=== PATIENT | male | born 1950 | race Caucasian/White ===

== ENCOUNTER → 2016-09-30 | Outpatient (CLI) | payer MEDICARE ==
[2016-06-17 11:15] VITALS: BP 128/80
[~2016-09-30] MED LIST: ACET500T68 PO; ALLERGY SHOT; AMLO2.5T PO; ASPI-482 PO; ATOR10TA PO; AZEL23SP NS; AZEL6DRO2 EACHEYE; BLUE EMU TOP; CARV25TA2 PO; CARV3.122 PO; CELE100C PO; CEVI30CA PO; CITA40TA5 PO; CLON0.5T3 PO; CYAN100072 PO; DICL100G7 TP; DIPH25TA PO; ERGO400T2 PO; GABA-585 PO; METH10SO3 PO; MORP15TA PO; MULT-658 PO; NITR0.4T SL; OMEG300C PO; PANT20TA3 PO; POTA20TA4 PO; POTA99TA10 PO; QUET25TA PO; TAMS0.4C2 PO; TELM20TA4 PO; TRAM50TA PO; ZOLP10TA4 PO
--- NOTE | 2016-09-30 13:08 | RAD ---
Indication pain. AP oblique and lateral views of the left knee were obtained as well as a sunrise view. There is suspect mild bony demineralization. An acute finding is not seen. Significant degenerative changes are not apparent on plain films. IMPRESSION: No acute or significant finding seen on plain films
== END | disposition home or self-care (01) ==
LOC: RAD 11:55
PROVIDERS: ATTEND Anesthesiology
DX: M17.12 Unilateral primary osteoarthritis, left knee (principal)
CPT/HCPCS: 73564; G0463

== ENCOUNTER → 2016-10-28 | Outpatient (CLI) | payer MEDICARE ==
[2016-06-17 11:15] VITALS: BP 128/80
--- NOTE | 2016-10-28 11:46 | KCIC ---
PROCEDURE MR of the left knee HISTORY Medial left knee pain. Swelling for 5 weeks ago. TECHNIQUE Routine multiplanar sequences are obtained. COMPARISON None FINDINGS Tear of the medial meniscus. No evidence of a lateral meniscal tear. Anterior and posterior cruciate ligaments are intact. Medial collateral ligament is intact Iliotibial band unremarkable. Fibular collateral ligament, biceps femoris tendon and popliteus tendon are intact. The extensor mechanism is intact. Small joint effusion. No evidence of an osteochondral loose body. Mild to moderate medial joint compartment chondromalacia. Tiny subchondral cysts at the medial femoral condyle. Mild chondromalacia at the posterior lateral tibial plateau. Severe chondromalacia at the patella. Mild subchondral marrow edema at the medial tibial plateau. There is a tiny nondisplaced subchondral fracture. Small bone lesion within the distal femur, abutting the growth plate scar, measuring 12 millimeters long axis, most compatible with a benign enchondroma. No aggressive bone destruction. IMPRESSION 1. Medial meniscal tear. 2. Small nondisplaced subchondral fracture at the medial tibial plateau. This most likely represents a stress fracture due to repetitive micro trauma, depending on clinical correlation. 3. Primary osteoarthritis. Electronically signed by: Dave Preston MD (Oct 28, 2016 11:44:39)
== END | disposition home or self-care (01) ==
LOC: KCIC MRI 07:54
PROVIDERS: ATTEND Orthopaedic Surgery
DX: M17.12 Unilateral primary osteoarthritis, left knee (principal); S83.242A Other tear of medial meniscus, current injury, left knee, initial encounter; X58.XXXA Exposure to other specified factors, initial encounter; Y93.89 Activity, other specified; Y92.89 Other specified places as the place of occurrence of the external cause; Y99.8 Other external cause status
CPT/HCPCS: 73721

== ENCOUNTER 2017-01-27 06:11 | Day surgery (SDC) | payer MEDICARE ==
[~2017-01-27 06:11] MED LIST changes: +DICL100G18 TP; -DICL100G7 TP
[2017-01-27] MEDS ORDERED: fentaNYL PF VIAL 100 MCG/2 ML VIAL IV PRN ×2 (07:00)
[2017-01-27] MEDS ORDERED: LIDOCAINE 1% 1 ML SYRINGE. ID PRN (07:00)
[2017-01-27] MEDS ORDERED: ONDANSETRON PF 4 MG/2 ML VIAL. IV PRN (07:00)
[2017-01-27] MEDS ORDERED: HYDROmorphone 2 MG/ML VIAL IV PRN (07:00)
[2017-01-27] MEDS ORDERED: PROCHLORPERAZINE 10 MG/2 ML VIAL. IV PRN (07:00)
[2017-01-27] MEDS ORDERED: IV RINGERS,LACTATED 1000ML 1,000 ML IV SCH ×2 (07:00→07:30)
[2017-01-27] MEDS ORDERED: MORPHINE SULFATE 2 MG/ML DISP.SYRIN. IV PRN (07:00)
[2017-01-27] MEDS ORDERED: BUPIVACAINE MPF 0.5% 30 ML VIAL. ONE (07:06)
--- NOTE | 2017-01-27 07:09 | EKG ---
[address] [place] [address] Test Date: 2017-01-27 Test Time: 07:09:48 Pat Name: LOUISE HORNER Department: Room: Gender: M Evaluator: ZACKERY : 1950 Requested By: MARY BORGES Order Number: [id number] Reading MD: Measurements Intervals [place] Rate: 73 P: 26 NH: 256 QRS: -44 QRSD: 132 T: 51 QT: 412 QTc: 458 Interpretive Statements SINUS RHYTHM VENTRICULAR PREMATURE COMPLEX(ES) PROLONGED NH INTERVAL ABNORMAL LEFT AXIS DEVIATION LEFT ANTERIOR FASCICULAR BLOCK RIGHT BUNDLE BRANCH BLOCK BIFASCICULAR BLOCK QRS(T) CONTOUR ABNORMALITY CONSIDER ANTEROLATERAL MYOCARDIAL DAMAGE ABNORMAL ECG RI6.01 Compared to ECG 06/09/2016 16:03:55 First degree AV block now present Left anterior fascicular block now present Bifascicular block now present
[2017-01-27] MEDS ORDERED: fentaNYL PF VIAL 100 MCG/2 ML VIAL ONE (07:11)
[2017-01-27] MEDS ORDERED: PROPOFOL 20 ML IV ONE (07:11)
[2017-01-27] MEDS ORDERED: DEXAMETHASONE SOD PHOS 20 MG/5 ML VIAL. ONE (07:11)
[2017-01-27] MEDS ORDERED: LIDOCAINE 2% PF Vial for OR 5 ML VIAL. ONE (07:11)
[2017-01-27] MEDS ORDERED: ONDANSETRON PF 4 MG/2 ML VIAL. ONE (07:11)
[2017-01-27] MEDS ORDERED: FAMOTIDINE 20 MG/2 ML VIAL ONE (07:11)
[2017-01-27] MEDS ORDERED: MIDAZOLAM HCL/PF 2 MG/2 ML VIAL. ONE (07:11)
--- NOTE | 2017-01-27 07:53 | DISCH ---
DISCHARGE INSTRUCTIONS Condition on Discharge Condition on Discharge: Stable Activity After Discharge Activity Instructions for Disc: Other, see below Other activity instructions: slow progression back to activities as tolerated Weight Bearing Status after Di: As tolerated Diet after Discharge Diet after Discharge: Regular Wound Incision Care Wound/Incision Care: Ice to area for comfort, Keep wound elevated, Change dressing Other wound/incision instructi: remove dressing in 2 days may then shower Contacting the DR. after DC Call your doctor for: Concerns you may have Follow-Up Follow up with: Tabatha 7-10 days PATRICA GEE MD Jan 27, 2017 07:53
[2017-01-27] MEDS ORDERED: OXYC-327 PO (07:55)
[2017-01-27] MEDS ORDERED: CLINDAMYCIN 600MG PREMIX 50 ML IV PRN (08:00)
[2017-01-27] MEDS ORDERED: ePHEDrine PF IN SALINE 50 MG/5 ML DISP.SYRIN IV ONE (08:01)
[2017-01-27] MEDS ORDERED: DESFLURANE 31 TO 60 MINUTES IH ONE ×2 (08:27→08:46)
[2017-01-27 09:31] VITALS: BP 159/75
--- NOTE | 2017-01-27 09:43 | PDOC ---
BRIEF OPERATIVE NOTE Date: Jan 27, 2017 Pre-Op Diagnosis Left knee medial meniscus tear Post-Op Diagnosis Same Procedure Performed Left knee arthroscopy partial medial meniscectomy Surgeon Tabatha Anesthesia Type: General Blood Loss 5 mL Findings Displaced tear posterior horn and body medial meniscus Complications None OPerative Note Operative indications patient is a 66-year-old male with sudden onset of left knee pain unresponsive to nonoperative treatment that is mechanical in nature with sharp pain with twisting pivoting activities. Clinical suspicion of a meniscal tear was verified by MRI. I had gone over with him the risks benefits postoperative course of the suggested operative procedure, including the inability to undo any degenerative changes of the symptoms associated with that possibility of infection nerve or blood vessel damage medical or other anesthetic consultations among others. All his questions were answered he wants to proceed with surgical evaluation and treatment having given the informed consent. Operative text patient was identified procedure verified patient placed in the supine position on operating table after adequate amounts of general anesthesia were administered thigh tourniquet was placed on the left lower extremity right lower extremity was placed in the lithotomy phoenix all bony prominences were well padded and the left lower shoulder was prepped and draped in standard sterile fashion. After timeout was performed patient procedure identified and verified, the left lower extremity was exsanguinated by Esmarch bandage tourniquet inflated to 250 mmHg and a lateral portal was established in standard fashion knee joint entered without difficulty medial portal established using spinal needle localization and the knee joint was systematically examined. He had some mild patellar chondromalacia which was lightly debrided to remove any loose fragments with the arthroscopic shaver some loose cartilage fragments were noted and suprapatellar pouch and gutter and evacuated with the arthroscopic shaver as well he had a flipped tear parrot- beak type involving the posterior horn and body of the medial meniscus which was trimmed back to stable tissue using arthroscopic punch and shaver. A stable rim of meniscus was achieved and he had mild chondromalacia particularly of the distal femoral condyle and in a very isolated fashion on the medial tibial plateau just under the cocopah portion of the meniscus tear. ACL was probed and found to be intact as well as the lateral meniscus. A brief to her the knee joint again revealed no loose cartilage pieces no other abnormalities the joint was drained of arthroscopic fluid portals closed with nylon suture fat pad and joint were injected with 20 mL of half percent plain Marcaine sterile dressings were applied tourniquet was deflated after total tourniquet time proximal leg 23 minutes patient was returned to recovery room in stable condition having tolerated the procedure well PATRICA GEE MD Jan 27, 2017 09:43
== END 2017-01-27 10:00 | disposition home or self-care (01) ==
LOC: SURG 06:11
PROVIDERS: ATTEND Orthopaedic Surgery
DX: S83.242A Other tear of medial meniscus, current injury, left knee, initial encounter (principal); X58.XXXA Exposure to other specified factors, initial encounter; Y93.89 Activity, other specified; Y92.89 Other specified places as the place of occurrence of the external cause; Y99.9 Unspecified external cause status; E78.00 Pure hypercholesterolemia, unspecified; I10 Essential (primary) hypertension; K21.9 Gastro-esophageal reflux disease without esophagitis; M19.90 Unspecified osteoarthritis, unspecified site; E32.9 Disease of thymus, unspecified; Z86.69 Personal history of other diseases of the nervous system and sense organs; Z82.49 Family history of ischemic heart disease and other diseases of the circulatory system; Z88.0 Allergy status to penicillin; Z88.8 Allergy status to other drugs, medicaments and biological substances
CPT/HCPCS: 29881; 93005; J1100; J2001; J2250; J2405; J2704; J3010; J3490; J7120; S0028

== ENCOUNTER → 2017-02-12 | Outpatient (CLI) | payer MEDICARE ==
[2017-01-27 09:31] VITALS: BP 159/75
[~2017-02-12] MED LIST changes: +IOHEXOL 180 MG/ML 10 ML VIAL. ONE; +OXYC-327 PO; +methylPREDNISolone ACETATE 40 MG/ML VIAL. ONE; +methylPREDNISolone ACETATE 80 MG/ML VIAL. ONE
--- NOTE | 2017-02-12 22:44 | PAIN ---
DATE OF SERVICE: 02/12/2017 PROGRESS NOTE FOR PAIN CLINIC DIAGNOSES: Lumbar radiculopathy with lumbar degenerative disk disease and post-lumbar laminectomy syndrome. HISTORY OF PRESENT ILLNESS: The patient is a 66-year-old male who returns for followup, last seen on 09/30/2016. The patient did well after transforaminal injection ____, had lumbar surgery in 06/2016. Has recently had the left knee surgery with meniscectomy about 2 weeks ago. The patient reports the pain; however, is in his right leg and low back radiating to the right knee and ankle as it was previously, again significantly helped with his transforaminal injection and significantly helped with the surgery temporarily. The patient reports now it has been about 7 months since surgery and the pain is beginning to return more on the right side, some in the low back, but mostly in the leg itself, in the knee and ankle without any new motor or sensory deficits. The patient reports full functional lower extremity. Reports his pain; however, as a 10 on a scale of 10 at its worst, it is currently a 6 on a scale of 10 today, and 8 on average. The patient reports it is burning, aching, cramping, tingling, constant, and shooting in the right leg as it was previously, and becoming more noticeable with activity. The patient reports better with sitting or lying down, does not awaken him from sleep at night. He sleeps well about 8 hours a night and is better with sitting as well, although driving a car occasionally can exacerbate it. Generally, it is not a problem with sitting. The patient reports no new motor or sensory deficits, no new bowel or bladder incontinence or other complaints. PAST MEDICAL HISTORY: Significant for shortness of breath, hypertension, hearing loss, coronary artery disease, headaches, arthritis, gastroesophageal reflux. PREVIOUS SURGERY: Include cardiac stent in 2010, cataract extractions, tonsillectomy, ORIF of the right wrist, multiple cardiac catheterizations, recent left knee meniscectomy and lumbar laminectomy in 06/2016. FAMILY HISTORY: Significant for heart disease. SOCIAL HISTORY: The patient reports he does not smoke, does not drink alcohol. The patient is and lives with his spouse locally and is currently retired. CURRENT MEDICATIONS: Include amlodipine, vitamins, nitroglycerin, Lipitor, Celebrex, clonazepam, pantoprazole, quetiapine, zolpidem, diclofenac, tamsulosin, telmisartan, diphenhydramine, B12, [place]-3, multivitamins, morphine, Neurontin, acetaminophen, methylphenidate, potassium chloride, carvedilol, and daily baby aspirin. REVIEW OF SYSTEMS: The patient's review of systems updated is complete, full and well documented on the patient's chart. PHYSICAL EXAMINATION: VITAL SIGNS: The patient's blood pressure is 135/85, pulse 61, respirations are 18, temperature is 98.2 degrees Fahrenheit. Height is 6 feet 1 inch, weight is 212 pounds. GENERAL: The patient is awake, alert, oriented, appropriate, very pleasant demeanor. HEENT: Shows normocephalic, atraumatic. Extraocular movements are intact and symmetrical. Oral cavity: Mucous membranes moist and pink. Dentition is intact. NECK: Shows anterior throat supple without palpable lymphadenopathy noted. Swallow reflex is symmetrical. CHEST: Shows normal on inspection. Breath sounds clear to auscultation bilaterally. HEART: Shows S1 and S2 clear. No murmurs auscultated. ABDOMEN: Soft, nontender, nondistended. No palpable organomegaly. No rebound or guarding demonstrated. BACK: The patient's back shows spine grossly in the midline. Well-healed surgical scars noted in the lumbar distribution. Lumbar paraspinous musculature shows symmetrical on inspection with palpation shows some very mild tenderness with palpation only in the lower lumbar distribution, more on the right than the left, but is symmetrical without radiation. No trigger points, no tenderness over the sacrum, sacroiliac regions, posterior superior iliac spines or the sacrum itself. LOWER EXTREMITIES: Show deep tendon reflexes at 2+ in the patellar tendons. The patient has well-healing surgical scars noted in the left knee from recent scope. Motor exam is strong with 5/5 dorsiflexion, extension, quadriceps, and hamstring flexion and symmetrical. Peripheral pulses are 1+ posterior tibial and dorsalis pedis pulses. No peripheral edema is noted. No clubbing, no cyanosis. The patient is able to stand, stand on his toes without difficulty or loss of balance, walks with a normal appearing gait for a short distance. Options were discussed with the patient and the patient's old chart was reviewed as his current medication regimen updated as noted. Current review of systems updated as noted. We just discussed options and the patient would like to proceed with interventional techniques. We discussed a caudal approach epidural steroid injection and he has done very well with these in the past. Risks were again discussed including, but not limited to bleeding, infection, possibility of epidural hematoma and subsequent neurologic compromise, dural puncture, headaches, spinal cord and/or nerve damage, side effects of steroid medication and poor results regarding pain control. The patient understands and wishes to proceed. The patient will return to the clinic in approximately 2 weeks for followup, was counseled on return appointment, activity level and side effects to be aware of. DIAGNOSES: Lumbar radiculopathy with lumbar degenerative disk disease and post-lumbar laminectomy syndrome. PROCEDURE: Caudal approach epidural steroid injection using C-arm fluoroscopic guidance under sterile prep and drape using local anesthetic. MEDICATIONS INJECTED: A total of 120 mg Depo-Medrol plus 10 mL of preservative-free normal saline, and 2 mL of Isovue for contrast. CONDITION AT DISCHARGE: Stable. The patient tolerated the procedure well and had no complications. NEFTALI KANG MD DR: DEVONTE/chase JOB#: [id number] / [id number]
== END | disposition home or self-care (01) ==
LOC: PNCL 11:05
PROVIDERS: ATTEND Anesthesiology
DX: M51.16 Intervertebral disc disorders with radiculopathy, lumbar region (principal); M96.1 Postlaminectomy syndrome, not elsewhere classified; E78.00 Pure hypercholesterolemia, unspecified; K21.9 Gastro-esophageal reflux disease without esophagitis; M19.90 Unspecified osteoarthritis, unspecified site; F32.9 Major depressive disorder, single episode, unspecified; Z86.69 Personal history of other diseases of the nervous system and sense organs; Z87.39 Personal history of other diseases of the musculoskeletal system and connective tissue; Z82.49 Family history of ischemic heart disease and other diseases of the circulatory system; Z88.0 Allergy status to penicillin; Z88.8 Allergy status to other drugs, medicaments and biological substances
CPT/HCPCS: 62323; J1030; J1040

== ENCOUNTER → 2017-03-04 | Outpatient (CLI) | payer MEDICARE ==
[~2017-03-04] MED LIST changes: +ACET325T9 PO; +ASCO10002 PO; +CHOL10003 PO; +DOCU100T11 PO; +EPIPEN0.3 MG/0.3 IJ; +FERR-26 PO; -IOHEXOL 180 MG/ML 10 ML VIAL. ONE; +PSYL0.5215 PO; +ZINC50TA33 PO; -methylPREDNISolone ACETATE 40 MG/ML VIAL. ONE; -methylPREDNISolone ACETATE 80 MG/ML VIAL. ONE
--- NOTE | 2017-03-04 09:14 | KCIC ---
ABDOMEN COMPLETE History: Epigastric pain Comparison: None. Findings: Multiple sonographic images of the abdomen are submitted. Pancreas is not well-visualized due to bowel gas. No free fluid is demonstrated. Abdominal aortic caliber is within normal limits proximally up to 1.9 cm, suboptimally visualized due to bowel gas. Inferior vena cava is also not well seen due to bowel gas. Gallbladder is present. There is internal echogenicity compatible with dependent gallstones. There is gallbladder wall thickening up to 0.6 cm. Technologist reports a positive sonographic Salgado sign. Sonographic features also suggest possibility of hyperplastic cholecystosis. Common bile duct is within normal limits at 0.3 cm. Right kidney measured 11.6 x 5.8 x 4.9 cm, no hydronephrosis. Left kidney measured 10.2 x 5.7 x 5.8 cm, no hydronephrosis. Spleen is not well-visualized due to bowel gas. There is coarsening of the echotexture of the liver. No focal hepatic lesion is demonstrated. Impression: 1. There is cholelithiasis as well as gallbladder wall thickening and positive sonographic Salgado's sign suggestive of cholecystitis. There also may be hyperplastic cholecystosis. There is no significant biliary ductal dilatation. 2. There is hepatic steatosis. 3. Exam is limited due to bowel gas with poor visualization of the pancreas and spleen. Electronically signed by: Grant Gonzalez MD (03/04/2017 9:11 AM) [id number]
== END | disposition home or self-care (01) ==
LOC: KCIC US 07:51
PROVIDERS: ATTEND Family Medicine
DX: K80.20 Calculus of gallbladder without cholecystitis without obstruction (principal); K76.0 Fatty (change of) liver, not elsewhere classified
CPT/HCPCS: 76700

== ENCOUNTER → 2017-03-04 | Outpatient (CLI) | payer MEDICARE ==
--- NOTE | 2017-03-04 21:44 | PAIN ---
DATE OF SERVICE: 03/04/2017 PROGRESS NOTE FOR PAIN CLINIC DIAGNOSES: Lumbar radiculopathy with lumbar degenerative disk disease and post-lumbar laminectomy syndrome. HISTORY OF PRESENT ILLNESS: The patient is a 66-year-old male who returns for followup status post caudal epidural steroid injection on 02/12/2017. The patient reports good decrease in pain in the left side of his low back, but the right leg although that is still improved has significant pain in the right ankle and foot as he had previously. The patient reports no significant improvement after the last injection in the right foot. His back and legs doing better on the right side and the left side, but still aching, tingling and constant pain in the right ankle and foot as it was previously. The patient reports at 9 on a scale of 10 it is worse and 6 on a scale of 10 at its least. The patient reports no loss of motor function, but significant weakness in the right foot with walking, standing and more secondary to the pain. The patient reports it awakens him from sleep at night, but he sleeps about 6-8 hours at the time. He is able to reposition and get back to sleep with the foot bother him. The patient reports no new motor or sensory deficits. No new bowel or bladder incontinence or other complaints. PHYSICAL EXAMINATION: VITAL SIGNS: Today, the patient's blood pressure 126/73, pulse 79, respirations are 20, temperature 98.3 degrees Fahrenheit, weight is 214 pounds. GENERAL: The patient is awake, alert, oriented, appropriate, very pleasant demeanor. HEENT: Head shows normocephalic, atraumatic. Extraocular movements are intact and symmetrical. Oral cavity shows mucous membranes moist and pink. Dentition is intact. NECK: Shows anterior throat supple without palpable lymphadenopathy noted. Swallow reflex is symmetrical. CHEST: Shows normal with inspection. Breath sounds clear to auscultation bilaterally. HEART: Shows S1 and S2 clear. No murmurs auscultated. ABDOMEN: Soft, nontender, nondistended. BACK: Shows spine grossly in the midline. Lumbar paraspinous muscle shows some mild tenderness with palpation, but symmetrical well-healed surgical scars again noted in the lumbar distribution. No radiation of pain is demonstrated. No tenderness over the sacrum or sacroiliac regions. EXTREMITIES: Lower extremities show deep tendon reflexes 2+ in the patellar, 1+ tendo-calcaneal tendons are equal. Motor exam is strong with 5/5 dorsiflexion, extension, quadriceps and hamstring flexion and symmetrical. Options were discussed with the patient and the patient's old chart was reviewed as his current medication regimen updated. Current review of systems updated today as well. We will proceed with a right-sided L4-L5 transforaminal injection as he has done very well with these in the past. Risks were again discussed including, but not limited to bleeding, infection, possibility of epidural hematoma and subsequent neurological compromise, dural punctures, headaches, spinal cord and/or nerve damage, side effects of steroid medication and potential injection of vertebral artery that level of permanent ischemic damage as well as poor results regarding pain control. The patient understands and wishes to proceed. The patient will return to clinic in approximately 2 weeks for followup, was counseled on return appointment, activity level and side effects to be aware of. DIAGNOSES: Lumbar radiculopathy with lumbar degenerative disk disease and post-lumbar laminectomy syndrome. PROCEDURE: Right-sided L4-L5 transforaminal injection using C-arm fluoroscopic guidance under sterile prep and drape using local anesthetic. Medication injected a total of 80 mg Depo-Medrol plus total 2 mL of 0.25% bupivacaine and a total of 1.5 mL of Isovue contrast with negative uptake with digital subtraction. CONDITION AT DISCHARGE: Stable. The patient tolerated procedure well, had no complications. NEFTALI KANG MD DR: DEVONTE/chase JOB#: [id number] / [id number]
== END | disposition home or self-care (01) ==
LOC: PNCL 13:03
PROVIDERS: ATTEND Anesthesiology
DX: M51.16 Intervertebral disc disorders with radiculopathy, lumbar region (principal); M96.1 Postlaminectomy syndrome, not elsewhere classified; E78.00 Pure hypercholesterolemia, unspecified; I10 Essential (primary) hypertension; K21.9 Gastro-esophageal reflux disease without esophagitis; F32.9 Major depressive disorder, single episode, unspecified; M17.10 Unilateral primary osteoarthritis, unspecified knee; Z98.41 Cataract extraction status, right eye; Z87.39 Personal history of other diseases of the musculoskeletal system and connective tissue; Z86.69 Personal history of other diseases of the nervous system and sense organs; Z98.42 Cataract extraction status, left eye; Z82.49 Family history of ischemic heart disease and other diseases of the circulatory system; Z88.0 Allergy status to penicillin; Z88.8 Allergy status to other drugs, medicaments and biological substances
CPT/HCPCS: 62323

== ENCOUNTER → 2017-04-07 | Outpatient (CLI) | payer MEDICARE ==
[2017-04-07 14:48] LABS: BASO # 0.1 x10^3/uL (0.0-0.2); BASO % 1 % (0-3); EOS % 5 % (0-3); HEMATOCRIT 39.1 % (39.0-53.0); HEMOGLOBIN 12.9 g/dL (13.0-17.5); LYMPH # 1.2 x10^3/uL (1.0-4.8); LYMPH % 13 % (24-48); MEAN CORPUSCULAR HEMOGLOBIN 31 pg (25-35); MEAN CORPUSCULAR HGB CONC 33 g/dL (31-37); MEAN CORPUSCULAR VOLUME 93 fL (79-100); MONO % 10 % (0-9); NEUT % 71 % (31-73); PLATELET COUNT 224 x10^3/uL (140-400); RED BLOOD COUNT 4.19 x10^6/uL (4.30-5.70); RED CELL DISTRIBUTION WIDTH 13.9 % (11.5-14.5); WHITE BLOOD COUNT 9.1 x10^3/uL (4.0-11.0)
[2017-04-07 14:57] LABS: ALBUMIN 3.5 g/dL (3.4-5.0); CALCIUM 9.1 mg/dL (8.5-10.1); CREATININE 1.2 mg/dL (0.7-1.3); GFR 60.2; POTASSIUM 4.2 mmol/L (3.5-5.1); TOTAL BILIRUBIN 0.4 mg/dL (0.2-1.0)
== END | disposition home or self-care (01) ==
LOC: SURGPAT 14:19
PROVIDERS: ATTEND Surgery
DX: Z01.818 Encounter for other preprocedural examination (principal)
CPT/HCPCS: 36415; 80048; 82040; 82247; 85025

== ENCOUNTER 2017-04-13 06:37 | Day surgery (SDC) | payer MEDICARE ==
[~2017-04-13] VITALS: Ht 182.9 cm; Wt 95.3 kg
[~2017-04-13 06:37] MED LIST changes: +BUPIVACAINE-EPI 0.5%-1:200000 50 ML VIAL. ONE; +IOHEXOL 300 MG/ML 50 ML VIAL. ONE
[2017-04-13] MEDS ORDERED: ONDANSETRON PF 4 MG/2 ML VIAL. IV PRN (07:00)
[2017-04-13] MEDS ORDERED: fentaNYL PF VIAL 100 MCG/2 ML VIAL IV PRN ×2 (07:00)
[2017-04-13] MEDS ORDERED: PROCHLORPERAZINE 10 MG/2 ML VIAL. IV PRN (07:00)
[2017-04-13] MEDS ORDERED: LIDOCAINE 1% PF 2 ML VIAL. ID PRN (07:00)
[2017-04-13] MEDS ORDERED: IV RINGERS,LACTATED 1000ML 1,000 ML IV SCH (07:00)
[2017-04-13] MEDS ORDERED: DEXAMETHASONE SOD PHOS 20 MG/5 ML VIAL. ONE (07:37)
[2017-04-13] MEDS ORDERED: ONDANSETRON PF 4 MG/2 ML VIAL. ONE (07:37)
[2017-04-13] MEDS ORDERED: LIDOCAINE 2% PF Vial for OR 5 ML VIAL. ONE (07:37)
[2017-04-13] MEDS ORDERED: PROPOFOL 20 ML IV ONE (07:37)
[2017-04-13] MEDS ORDERED: fentaNYL PF VIAL 100 MCG/2 ML VIAL ONE (07:38)
[2017-04-13] MEDS ORDERED: ROCURONIUM 100 MG/10 ML VIAL. ONE (07:38)
[2017-04-13] MEDS ORDERED: GLYCOPYRROLATE 1 MG/5 ML VIAL. ONE (08:40)
[2017-04-13] MEDS ORDERED: NEOSTIGMINE METHYLSULFATE 5 MG/5 ML SYRINGE. ONE (08:40)
--- NOTE | 2017-04-13 09:07 | RAD ---
Intraoperative cholangiogram, 04/13/2017: History: Cholecystectomy 2 spot films from surgery are presented for review. Contrast was injected into the cystic duct remnant. 0.7 minutes of fluoroscopy time was utilized. There is good flow of contrast into the duodenum at the ampulla. The common duct is of normal caliber. No definite filling defect is seen to suggest a retained calculus. The visualized intrahepatic ducts are unremarkable. No contrast extravasation is seen. IMPRESSION: No significant abnormality is detected.
[2017-04-13] MEDS ORDERED: KETOROLAC 15 MG/ML VIAL. ONE (09:20)
[2017-04-13] MEDS ORDERED: KETOROLAC 15 MG/ML VIAL. IV ONE (09:30)
--- NOTE | 2017-04-13 09:37 | PDOC ---
BRIEF OPERATIVE NOTE Date: Apr 13, 2017 Pre-Op Diagnosis symptomatic cholelithiasis Post-Op Diagnosis same Procedure Performed l/s cholecystectomy with cholangiograms Surgeon Jose E [place] Specialist Emily HOBSON Anesthesia Type: General Blood Loss 10cc IV Fluid 1000cc Specimens Obtained GB Findings supple GB, normal grams Complications none OPerative Note Wk # [id number] EVON BOWEN MD Apr 13, 2017 09:37
--- NOTE | 2017-04-13 09:39 | DISCH ---
DISCHARGE INSTRUCTIONS Condition on Discharge Condition on Discharge: Stable Activity After Discharge Activity Instructions for Disc: Activity as tolerated, Avoid exertion Driving Instructions after Dis: Do not drive (3-4 days) Diet after Discharge Diet after Discharge: Regular Wound Incision Care Wound/Incision Care: Ice to area for comfort Other wound/incision instructi: junior shower Thursday Follow-Up Follow up with: Jose E next week EVON BOWEN MD Apr 13, 2017 09:39
[2017-04-13] MEDS ORDERED: OXYC-323 PO (09:55)
[2017-04-13] MEDS ORDERED: DOCU50CA9 PO (09:56)
[2017-04-13] MEDS ORDERED: oxyCODONE/APAP 5/325 1 TAB TABLET PO ONE (10:00)
--- NOTE | 2017-04-13 10:04 | OP ---
DATE OF SURGERY: 04/13/2017 DATE OF SERVICE: 04/13/2017 PREOPERATIVE DIAGNOSIS: Biliary dyskinesia. POSTOPERATIVE DIAGNOSIS: Biliary dyskinesia. PROCEDURE: Laparoscopic cholecystectomy with cholangiogram. SURGEON: Jarad Bowen MD [employer]LE OPERATOR: JOCE Hood ANESTHESIA: General endotracheal. ESTIMATED BLOOD LOSS: 10 mL. IV FLUID: 1 liter. INDICATIONS: The patient is a 67-year-old gentleman who presented with abdominal pain. He is brought for cholecystectomy. OPERATIVE FINDINGS: The liver was smooth and sharp. The gallbladder was supple. Cholangiograms were normal. DESCRIPTION OF PROCEDURE: The patient brought to the operating suite, given a general endotracheal anesthetic and the abdomen prepped and draped in usual sterile fashion. An infraumbilical incision was infiltrated with local anesthetic, sharply incised and a 5 mm Visiport used to gain access into the abdominal cavity. Pneumoperitoneum was established. Camera inserted and inspection carried out with results as noted above. With the table in reverse Trendelenburg rolled to left, the epigastric and midclavicular ports were placed under direct vision. The lateral port location was used for an "alligator" grasper and the gallbladder was retracted superolaterally and the cystic duct and cystic artery were exposed. The duct was clipped on the gallbladder side. Cholangiograms were made. These were normal. In light of this, the catheter was removed. The cystic duct was clipped and divided, taking care to avoid injury or compromise of the common duct. Cystic artery clipped and divided and gallbladder freed from the bed with cautery dissection and placed in an EndoCatch bag. Good hemostasis was present in the fossa and no evidence of a bile leak was seen. Table returned to level. Gallbladder delivered through the epigastric incision. Epigastric incision closed with interrupted 0 Vicryl suture. Intra-abdominal pressure decreased to 6 cm of water. No bleeding from the epigastric closure or from the midclavicular port site after its removal or from the lateral grasper location. Abdomen decompressed, camera slowly removed, no bleeding seen. Skin incisions closed with subcuticular 4-0 Monocryl. Steri-Strips and sterile dressings applied. The patient was awakened from his anesthetic and taken to the recovery room in satisfactory condition. JARAD BOWEN MD DR: ANNA MARIE/chase JOB#: [id number] / [id number]
[2017-04-13] MEDS ORDERED: SEVOFLURANE 61 TO 120 MINUTES. IH ONE (10:11)
[2017-04-13 12:30] VITALS: BP 127/77
== END 2017-04-13 12:50 | disposition home or self-care (01) ==
LOC: SURG 06:37
PROVIDERS: ATTEND Surgery
DX: K82.8 Other specified diseases of gallbladder (principal); E78.00 Pure hypercholesterolemia, unspecified; I10 Essential (primary) hypertension; K21.9 Gastro-esophageal reflux disease without esophagitis; F32.9 Major depressive disorder, single episode, unspecified; M19.91 Primary osteoarthritis, unspecified site; G47.30 Sleep apnea, unspecified; Z82.49 Family history of ischemic heart disease and other diseases of the circulatory system; Z87.39 Personal history of other diseases of the musculoskeletal system and connective tissue; Z88.0 Allergy status to penicillin; Z83.3 Family history of diabetes mellitus; Z86.69 Personal history of other diseases of the nervous system and sense organs; Z88.8 Allergy status to other drugs, medicaments and biological substances
CPT/HCPCS: 47563; 74300; 88304; C1769; J1100; J1885; J1956; J2405; J2704; J2710; J3010; J3490; J7030; J7120; Q9967; J2001

== ENCOUNTER → 2017-06-19 | Outpatient (CLI) | payer MEDICARE ==
[~2017-06-19] MED LIST changes: +BUPIVACAINE MPF 0.25% 10 ML VIAL. ONE; -BUPIVACAINE-EPI 0.5%-1:200000 50 ML VIAL. ONE; +DOCU50CA9 PO; +IOHEXOL 180 MG/ML 10 ML VIAL. ONE; -IOHEXOL 300 MG/ML 50 ML VIAL. ONE; +OXYC-323 PO; +methylPREDNISolone ACETATE 40 MG/ML VIAL. ONE; +methylPREDNISolone ACETATE 80 MG/ML VIAL. ONE
--- NOTE | 2017-06-19 12:13 | PAIN ---
DATE OF SERVICE: 06/19/2017 DIAGNOSES: 1. Lumbar radiculopathy with lumbar degenerative disk disease and post-lumbar laminectomy syndrome. 2. Left knee joint pain with primary osteoarthritis, left knee. HISTORY OF PRESENT ILLNESS: The patient is a 67-year-old male who returns for followup status post caudal approach epidural steroid injection x 1 and right transforaminal injection L4-L5 x 1. The patient reports that the most recent injection helped more significantly the transforaminal injection with about 60% improvement until the last few weeks. The patient had last injection on 03/04. He reports the pain has been doing very well until, maybe, 1-2 weeks ago. The patient reports it is becoming more noticeable with sitting and lying down, becoming more difficult at night, has been waking him from sleep, in the right side, right leg. The patient reports pain radiating to the right posterior gluteus, lateral thigh, lateral anterior medial thigh, medial lower leg, posterior lower leg, into the right foot, mostly in the medial aspect. He also has some stabbing sensation in the heel, also is aching, sharp, shooting with cramping sensation, tingling, becoming more constant, more unbearable at times, again worse with sitting or lying down. Sometimes better with standing and walking more than 10-15 minutes, the pain becomes more unbearable. The patient reports pain is a 10 on a scale of 10 at its worst, 9 on average, 8 at its least and is 8 today. The patient reports no new motor or sensory deficits, no new bowel or bladder incontinence or other complaints. PHYSICAL EXAMINATION: VITAL SIGNS: Today, blood pressure is 157/96, pulse 85, respirations 20, temperature is 97.7 degrees Fahrenheit, height 6 feet 1 inch, weight is 215 pounds. GENERAL: The patient is awake, alert, oriented, appropriate, very pleasant demeanor. HEENT: Head shows normocephalic, atraumatic. Extraocular movements are intact and symmetrical. Oral cavity: Mucous membranes moist and pink. Dentition is intact. NECK: Shows anterior throat supple without palpable lymphadenopathy noted. Swallow reflex symmetrical. CHEST: Shows normal with inspection. Breath sounds are clear to auscultation bilaterally. HEART: Shows S1, S2 clear. ABDOMEN: Soft, nontender, nondistended. No palpable organomegaly. No rebound or guarding demonstrated. BACK: Shows spine grossly midline. Well-healed surgical scar is noted in the lumbar distribution. Paraspinous musculature shows symmetrical on inspection without atrophy or hypertrophy, with palpation shows moderate tenderness only diffusely in the bilateral middle and lower distribution, but symmetrical. The patient has good rotational motion both laterally as well as extension and flexion without significant difficulty. EXTREMITIES: Lower extremities show deep tendon reflexes 2+ in the patellar, 1+ tendo-calcaneus tendons are equal. Motor exam is strong with 5/5 dorsiflexion, extension, quadriceps and hamstring flexion and are symmetrical as well. Peripheral pulses are 1+ posterior tibia. No peripheral edema is noted bilaterally in the lower extremities. Options were discussed with the patient. The patient's old chart was reviewed. His current medication regimen updated. Current review of systems updated today as well. We will proceed with a second in this series of transforaminal injection at the L4-L5 level on the right using C-arm fluoroscopic guidance. Risks were discussed including but not limited to bleeding, infection, possibility of epidural hematoma, subsequent neurologic compromise, dural punctures, headaches, spinal cord and/or nerve damage, side effects of steroid medication, potential injection of vertebral artery at that level, permanent ischemic damage as well as poor results regarding pain control, exposure to fluoroscopy. The patient understands and wished to proceed. The patient will return to clinic in approximately 2 weeks for followup. He was counseled on return appointment, activity level and side effects to be aware of. DIAGNOSES: Lumbar radiculopathy with lumbar degenerative disk disease, post-lumbar laminectomy syndrome. PROCEDURE: Right-sided transforaminal L4-L5 injection with a serum fluoroscopic guidance under sterile prep and drape using local anesthetic. Medication injected a total of 80 mg Depo-Medrol, plus 3 mL of 0.25% bupivacaine and 1.5 mL of contrast with no washout with digital subtraction noted. Negative aspiration throughout. The patient tolerated procedure well, had no complications. NEFTALI KANG MD DR: DEVONTE/chase JOB#: [id number] / [id number]
== END ==
LOC: PNCL 08:37
PROVIDERS: ATTEND Anesthesiology
DX: M51.16 Intervertebral disc disorders with radiculopathy, lumbar region (principal); M96.1 Postlaminectomy syndrome, not elsewhere classified; M17.12 Unilateral primary osteoarthritis, left knee; I25.2 Old myocardial infarction; E78.00 Pure hypercholesterolemia, unspecified; I10 Essential (primary) hypertension; K21.9 Gastro-esophageal reflux disease without esophagitis; F32.9 Major depressive disorder, single episode, unspecified; Z87.19 Personal history of other diseases of the digestive system; Z98.52 Vasectomy status; Z82.49 Family history of ischemic heart disease and other diseases of the circulatory system; Z83.3 Family history of diabetes mellitus; Z95.5 Presence of coronary angioplasty implant and graft; Z98.890 Other specified postprocedural states; Z98.49 Cataract extraction status, unspecified eye
CPT/HCPCS: 64483; J1040; J3490; J1030

== ENCOUNTER → 2019-07-22 | Outpatient (CLI) | payer MEDICARE ==
[~2019-07-22] MED LIST changes: -AMLO2.5T PO; +AMLO2.5T5 PO; -BUPIVACAINE MPF 0.25% 10 ML VIAL. ONE; +CARV3.1210 PO; -CARV3.122 PO; +CLON-77 PO; -CLON0.5T3 PO; -FERR-26 PO; +FERR325T14 PO; -IOHEXOL 180 MG/ML 10 ML VIAL. ONE; +IOHEXOL 240 MG/ML 50ML VIAL. PO ONE; +IOHEXOL 300 MG/ML 100ML VIAL. IV ONE; -NITR0.4T SL; +NITR0.4T24 SL; -OXYC-323 PO; -OXYC-327 PO; +OXYC1TAB15 PO; +OXYC1TAB19 PO; -TELM20TA4 PO; +TELM20TA7 PO; -methylPREDNISolone ACETATE 40 MG/ML VIAL. ONE; -methylPREDNISolone ACETATE 80 MG/ML VIAL. ONE
--- NOTE | 2019-07-22 12:49 | RAD ---
EXAM: Abdomen and pelvis CT with intravenous contrast. HISTORY: Inguinal mass. TECHNIQUE: Computed tomographic images of the abdomen and pelvis were obtained following the administration of 75 cc Omnipaque 300 intravenous contrast. Multiplanar reformatting was performed. *One or more of the following individualized dose reduction techniques were utilized for this examination: 1. Automated exposure control. 2. Adjustment of the mA and/or kV according to patient size. 3. Use of iterative reconstruction technique. COMPARISON: 06/25/2011. FINDINGS: Evaluation of the lower thorax demonstrates posterior dependent, basilar, lingular and right middle lobe atelectasis and scarring. There is no infiltrate, pleural effusion or suspicious pulmonary nodule. There is coronary artery atherosclerosis. There is slight ossification of the aortic valve. No hepatic lesion is seen. The gallbladder is surgically absent. The pancreas, spleen, adrenal glands and stomach are unremarkable. There is a 1.8 cm simple appearing cyst along the lower pole of the left kidney. No suspicious renal lesion or hydronephrosis is seen. The urinary bladder is unremarkable. There is no appendicitis. There is a large left inguinal hernia containing a segment of proximal sigmoid colon. There is no evidence of bowel incarceration or mechanical obstruction. There is distal colonic diverticulosis without evidence of diverticulitis. There is a small fat-containing right inguinal hernia. There are prominent loops of distal small bowel within the right lower quadrant. There is increased density within a small bowel loop slightly proximal to a transitional point to decompressed distal small bowel. This is best seen on series 2, image 66 and series 4, image 21. This measures approximately 2.3 cm on coronal images and 2.1 cm on axial images. The aorta is normal in caliber. There is no lymphadenopathy. There is a tiny fat-containing umbilical hernia. There are degenerative changes throughout the spine. There is a dorsal column stimulator generator within the left flank with leads extending cephalad to the superior margin of the [id number]. IMPRESSION: 1. Large left inguinal hernia containing a segment of proximal sigmoid colon. The hernia sac measures 12.6 cm in maximum craniocaudal dimension. There is no evidence of mechanical obstruction or incarceration. 2. Mildly distended loops of distal small bowel within the right lower quadrant extending to a short segment of small bowel containing increased density along the bowel wall measuring approximately 2.3 x 2.1 cm. This is immediately proximal to a transition point to decompressed small bowel, favoring possible partial small bowel obstruction due to an intrinsic mucosal lesion. 3. Small fat-containing right inguinal hernia and small fat-containing umbilical hernia. 4. Distal colonic diverticulosis. 5. Small left renal cyst. Electronically signed by: Kaela Naik MD (07/22/2019 12:45 PM) [place] [id number]
== END | disposition home or self-care (01) ==
LOC: CT 07:37
PROVIDERS: ATTEND Family Medicine
DX: K40.20 Bilateral inguinal hernia, without obstruction or gangrene, not specified as recurrent (principal); K42.9 Umbilical hernia without obstruction or gangrene; K57.30 Diverticulosis of large intestine without perforation or abscess without bleeding; N28.1 Cyst of kidney, acquired; J98.11 Atelectasis; J98.4 Other disorders of lung; I25.10 Atherosclerotic heart disease of native coronary artery without angina pectoris
CPT/HCPCS: 74177; Q9966; Q9967

== ENCOUNTER → 2021-05-08 | Outpatient (CLI) | payer MEDICARE ==
[~2021-05-08] MED LIST changes: +ASCO100019 PO; -ASCO10002 PO; -CITA40TA5 PO; +CITA40TA6 PO; -DICL100G18 TP; +DICL100G54 TP; -IOHEXOL 240 MG/ML 50ML VIAL. PO ONE; -IOHEXOL 300 MG/ML 100ML VIAL. IV ONE; +POTA-121 PO; -POTA20TA4 PO; -QUET25TA PO; +QUET25TA3 PO
--- NOTE | 2021-05-08 13:24 | KCIC ---
EXAM: CHEST 2 VIEWS. HISTORY: Preoperative risk factors. COMPARISON: None. FINDINGS: Frontal and lateral views of the chest are obtained. There are no confluent infiltrates. Linear opacities in the bases are consistent with atelectasis or mild interstitial lung disease. There is no pneumothorax or pleural effusion. The heart is not enlarg ed. Cholecystectomy clips and IMPRESSION: 1. Mild opacities in the bases may reflect atelectasis or mild interstitial lung disease. Electronically signed by: Torrey Jackson MD (05/08/2021 1:22 PM) [id number]
== END ==
LOC: KCIC 10:13
PROVIDERS: ATTEND Orthopaedic Surgery Sports Medicine
DX: Z01.818 Encounter for other preprocedural examination (principal); Z90.49 Acquired absence of other specified parts of digestive tract
CPT/HCPCS: 71046